=== PATIENT | male | born 1980 | race Caucasian/White ===

== ENCOUNTER 2025-08-20 10:45 | Inpatient (IN) | payer OTHER ==
[2025-08-20] VITALS (27 sets, daily range): BP systolic 123–168; BP diastolic 84–127; TEMP 98.1; O2SAT 94–98
[~2025-08-20] VITALS: Ht 167.6 cm; Wt 63.5 kg
[2025-08-20 11:16] LABS: PLATELET COUNT (AUTO) 242 K/uL (150-450); RED BLOOD CELL COUNT(AUTO) 5.49 MIL/uL (4.5-6.0); RED CELL DISTRIBUTION WIDTH 17.5 % (11.5-15.0); WHITE BLOOD COUNT (AUTO) 8.9 K/uL (4.3-11.0)
[2025-08-20 11:27] LABS: CALCIUM, SERUM 8.0 mg/dL (8.5-10.1); CREATININE 2.2 mg/dL (0.6-1.3); SODIUM SERUM 143 mmol/L (136-145); UREA NITROGEN, BLOOD 32 mg/dL (7-18)
[2025-08-20 11:28] LABS: INR 0.96 (0.91-1.10)
[2025-08-20 11:40] LABS: ASPARTATE AMINOTRANSFERASE 19 U/L (15-37); NT-PRO BNP 12838 pg/mL (0-125); TOTAL PROTEIN, SERUM 7.2 g/dL (6.4-8.2)
[2025-08-20] MEDS: NIFEdipine XL (30MG) 30 MG TAB PO SCH (11:47)
[2025-08-20] MEDS ORDERED: IOHEXOL-350 100 ML VIAL IV ONE (11:50)
[2025-08-20] MEDS ORDERED: CT SWABBABLE VALVE TRANS SET 1 EA INFUS.SET MC ONE (11:50)
[2025-08-20] MEDS ORDERED: IV NS 0.9% 250 ML IV ONE (11:50)
[2025-08-20] MEDS ORDERED: TORS20TA3 PO (12:33)
[2025-08-20] MEDS ORDERED: EMPA10TA PO (12:33)
[2025-08-20] MEDS ORDERED: SPIR25TA6 PO (12:33)
[2025-08-20] MEDS ORDERED: LOSA25TA27 PO (12:33)
[2025-08-20] MEDS ORDERED: NIFE-35 PO (12:33)
[2025-08-20] MEDS ORDERED: LABETALOL HCL IV 100MG VIAL ONE (12:47)
[2025-08-20] MEDS: LABETALOL HCL IV 100MG VIAL IV ONE (12:52)
[2025-08-20] MEDS ORDERED: MAG HYDROX/AL HYDROX/SIMETH 30 ML UDC PO PRN (14:00)
[2025-08-20] MEDS ORDERED: MAGNESIUM HYDROXIDE 30 ML UDC PO PRN (14:00)
[2025-08-20] MEDS ORDERED: ACETAMINOPHEN 325 MG TABLET PO PRN (14:00)
[2025-08-20] MEDS ORDERED: TEMAZEPAM 15 MG CAPSULE PO PRN (14:00)
[2025-08-20] MEDS ORDERED: Z GUARD REMEDY 4 OZ OINT TP PRN (14:00)
[2025-08-20] MEDS ORDERED: ASPIRIN 325 MG TABLET ONE (14:29)
[2025-08-20] MEDS ORDERED: hydrALAZINE HCL IV 20 MG VIAL ONE (14:30)
[2025-08-20] MEDS ORDERED: METOPROLOL TARTRATE 50 MG TABLET ONE (14:31)
[2025-08-20] MEDS: ASPIRIN 325 MG TABLET PO ONE (14:52)
[2025-08-20] MEDS: METOPROLOL TARTRATE 25 MG TABLET PO SCH (14:53)
[2025-08-20] MEDS: hydrALAZINE HCL IV 20 MG VIAL IV PRN (14:54)
[2025-08-20] MEDS: NTG 50 MG/D5W250 ML BOTTL 250 ML IV PRN ×2 (15:25→19:09)
[2025-08-20] MEDS ORDERED: HYDROCODONE/APAP 5/325MG TABLET ONE (15:38)
[2025-08-20] MEDS: HYDROCODONE/APAP 5/325MG TABLET PO PRN (15:39)
[2025-08-20] MEDS: ATORVASTATIN 40 MG TABLET PO SCH (17:48)
[2025-08-21] VITALS (44 sets, daily range): BP systolic 131–178; BP diastolic 86–121; TEMP 98.1–99.5; O2SAT 92–97
[2025-08-21 03:53] LABS: PLATELET COUNT (AUTO) 251 K/uL (150-450); RED BLOOD CELL COUNT(AUTO) 5.41 MIL/uL (4.5-6.0); RED CELL DISTRIBUTION WIDTH 18.6 % (11.5-15.0); WHITE BLOOD COUNT (AUTO) 10.6 K/uL (4.3-11.0)
[2025-08-21 04:06] LABS: CALCIUM, SERUM 8.1 mg/dL (8.5-10.1); CREATININE 2.1 mg/dL (0.6-1.3); PHOSPHORUS 4.0 mg/dL (2.5-4.9); SODIUM SERUM 143 mmol/L (136-145); UREA NITROGEN, BLOOD 30 mg/dL (7-18)
[2025-08-21 04:11] LABS: LDL 88 mg/dL (0-99)
[2025-08-21] MEDS: EMPAGLIFLOZIN 10 MG TABLET PO SCH (08:13)
[2025-08-21] MEDS: NIFEdipine XL (30MG) 30 MG TAB PO SCH (08:14)
[2025-08-21] MEDS: ASPIRIN 81 MG TAB.CHEW PO SCH (08:17)
[2025-08-21] MEDS: PANTOPRAZOLE 40 MG TABLET.DR PO SCH (08:17)
[2025-08-21] MEDS ORDERED: NIFEdipine XL (30MG) 30 MG TAB PO SCH (09:00)
[2025-08-21] MEDS ORDERED: METOPROLOL TARTRATE 50 MG TABLET PO SCH (09:00)
[2025-08-21] MEDS: ISOSORBIDE DINITRATE (20MG) 20 MG TABLET PO SCH (09:19)
[2025-08-21] MEDS: POTASSIUM CL. PREMIX PERIPHER. 50 ML IV SCH (11:32)
[2025-08-21] MEDS: ONDANSETRON HCL/PF 4 MG/2 ML VIAL IVP PRN (13:35)
[2025-08-21 15:40] LABS: APPEARANCE,URINE CLEAR (CLEAR); BLOOD, URINE NEGATIVE Ery/uL (NEGATIVE); LEUKOCYTE ESTERASE ,URINE NEGATIVE (NEGATIVE); NITRITE, URINE NEGATIVE (NEGATIVE); UGLUCOSE 2+ mg/dL (NEGATIVE)
[2025-08-21 15:53] LABS: CREATININE, URINE 131.5 MG/DL (30.0-125.0); URINE SODIUM, RANDOM 49.0 mmol/l (40-220); URINE TOTAL PROTEIN 285.1 mg/dL (0-11.9)
[2025-08-21 15:58] LABS: ADD URINE CULTURE YES
[2025-08-21] MEDS: METOPROLOL TARTRATE 50 MG TABLET PO SCH (16:12)
[2025-08-21 16:31] LABS: EOSINOPHIL,URINE None Seen
[2025-08-22] VITALS (7 sets, daily range): BP systolic 123–165; BP diastolic 70–119; TEMP 98.1–99.2; O2SAT 94–99
[2025-08-22 05:51] LABS: PLATELET COUNT (AUTO) 260 K/uL (150-450); RED BLOOD CELL COUNT(AUTO) 4.94 MIL/uL (4.5-6.0); RED CELL DISTRIBUTION WIDTH 18.5 % (11.5-15.0); WHITE BLOOD COUNT (AUTO) 10.5 K/uL (4.3-11.0)
[2025-08-22 06:18] LABS: ASPARTATE AMINOTRANSFERASE 10.0 U/L (15-37); CALCIUM, SERUM 8.2 mg/dL (8.5-10.1); CREATININE 2.4 mg/dL (0.6-1.3); PHOSPHORUS 3.6 mg/dL (2.5-4.9); SODIUM SERUM 142.0 mmol/L (136-145); TOTAL PROTEIN, SERUM 6.2 g/dL (6.4-8.2); UREA NITROGEN, BLOOD 26.0 mg/dL (7-18)
[2025-08-22 06:20] LABS: CREATINE KINASE, TOTAL 48 U/L (39-308)
[2025-08-22] MEDS ORDERED: NIFEdipine XL (30MG) 30 MG TAB PO SCH (09:30)
[2025-08-22 11:08] LABS: CORTISOL AM 29.4 ug/dL (6.2-19.4)
[2025-08-22] MEDS: NIFEdipine XL (30MG) 30 MG TAB PO SCH (16:13)
[2025-08-23] VITALS: BP 121/72; TEMP 98.1; O2SAT 95
[2025-08-23 04:00] VITALS: BP 117/81; TEMP 97.9; O2SAT 93
[2025-08-23 06:27] LABS: PLATELET COUNT (AUTO) 281 K/uL (150-450); RED BLOOD CELL COUNT(AUTO) 5.14 MIL/uL (4.5-6.0); RED CELL DISTRIBUTION WIDTH 18.1 % (11.5-15.0); WHITE BLOOD COUNT (AUTO) 11.9 K/uL (4.3-11.0)
[2025-08-23 06:42] LABS: ASPARTATE AMINOTRANSFERASE 12.0 U/L (15-37); CALCIUM, SERUM 8.5 mg/dL (8.5-10.1); CREATININE 2.4 mg/dL (0.6-1.3); PHOSPHORUS 3.5 mg/dL (2.5-4.9); SODIUM SERUM 141.0 mmol/L (136-145); TOTAL PROTEIN, SERUM 6.7 g/dL (6.4-8.2); UREA NITROGEN, BLOOD 28.0 mg/dL (7-18)
[2025-08-23 08:00] VITALS: BP 155/107; TEMP 98; O2SAT 98
[2025-08-23 09:13] LABS: *SPE A/G RATIO 1.1 (0.7-1.7); *SPE ALBUMIN 2.9 g/dL (2.9-4.4); *SPE ALPHA-1-GLOBULIN 0.3 g/dL (0.0-0.4); *SPE ALPHA-2-GLOBULIN 0.7 g/dL (0.4-1.0); *SPE BETA GLOBULIN 0.9 g/dL (0.7-1.3); *SPE GLOBULIN, TOTAL 2.6 g/dL (2.2-3.9); *SPE M-SPIKE Not Observed g/dL (Not Observed); *SPE PROTEIN TOTAL 5.5 g/dL (6.0-8.5); *SPEGAMMA GLOBULIN 0.7 g/dL (0.4-1.8); PTH, INTACT 42 pg/mL (15-65)
[2025-08-23 12:00] VITALS: BP 153/107; TEMP 97.7; O2SAT 98
[2025-08-23 12:48] VITALS: BP 153/107
[2025-08-23] MEDS ORDERED: HYDR-4077 PO (15:26)
[2025-08-23] MEDS ORDERED: METO50TA16 PO (15:26)
[2025-08-23] MEDS ORDERED: ASPI-1169 PO (15:26)
[2025-08-23] MEDS ORDERED: ISOS20TA8 PO (15:26)
[2025-08-23] MEDS ORDERED: NIFE-35 PO (15:26)
[2025-08-25 01:10] LABS: ALDOSTERONE,LCMS 30.0 ng/dL (.)
== END 2025-08-23 16:40 | disposition home or self-care (01) | DRG 199 ==
LOC: ER 11:03 → TELE1 14:21 → ICU IN 15:41 → ICU 15:55 → TELE1 08-21 17:26
PROVIDERS: ADMIT Nurse Practitioner Acute Care
DX: I16.1 Hypertensive emergency (principal); I50.33 Acute on chronic diastolic (congestive) heart failure; I21.A1 Myocardial infarction type 2; I13.0 Hypertensive heart and chronic kidney disease with heart failure and stage 1 through stage 4 chronic kidney disease, or unspecified chronic kidney disease; N18.30 Chronic kidney disease, stage 3 unspecified; D64.9 Anemia, unspecified; Z91.148 Patient's other noncompliance with medication regimen for other reason; Z79.84 Long term (current) use of oral hypoglycemic drugs; Z79.899 Other long term (current) drug therapy; E87.6 Hypokalemia
CPT/HCPCS: 36415; 70450-TC; 70498-TC; 71045-TC; 76770-TC; 80048-TC; 80053-TC; 80061-TC; 80076-TC; 81001; 82088; 82533; 82550-TC; 82570-TC; 83735-TC; 83880; 83970; 84100-TC; 84155; 84165; 84244; 84300-TC; 84484-TC; 85025-TC; 85730-TC; 86850-TC; 87081-TC; 87086-TC; 93307-TC; G0378; J0360; J2405; J3480; J3490; J7050; Q9967